=== PATIENT | male | born 1980 | race Caucasian/White ===

== ENCOUNTER 2017-05-15 12:48 | Emergency (ER) | payer SELFPAY ==
[2017-05-15] MEDS: BUPIVACAINE HCL 0.5% 10 ML VIAL SC (15:00)
== END 2017-05-15 15:45 | disposition home or self-care (01) ==
LOC: M ED 12:48
DX: K08.89 Other specified disorders of teeth and supporting structures (principal); Z87.891 Personal history of nicotine dependence
CPT/HCPCS: 64400

== ENCOUNTER → 2022-12-14 | Outpatient (REF) | payer OTHER ==
[~2022-12-14] MED LIST: ACET-683 PO; ACET-716 PO; NAPR-885 PO
== END ==
LOC: M LAB REF 18:08
PROVIDERS: ATTEND Internal Medicine
DX: E11.9 Type 2 diabetes mellitus without complications (principal); Z83.3 Family history of diabetes mellitus